=== PATIENT | male | born 1945 | race Caucasian/White ===

== ENCOUNTER 2019-05-27 08:13 | Outpatient (REF) | payer MEDICARE, OTHER, SELFPAY ==
[2019-05-28 08:45] LABS: HCT 47.1 % (40.0-50.0); HGB 16.1 g/dL (13.5-17.5); Mean Corp. HGB Concentration 34.2 g/dL (32.0-36.0); Mean Corpuscular Hemoglobin 31.4 pg (27.0-33.0); Mean Corpuscular Volume 91.8 fL (80-95); Mean Platelet Volume 11.7 fL (8.0-11.0); Platelet Count 178 x1000/uL (130-400); RBC 5.13 m/cumm (4.50-6.00); RBC Distribution Width 13.1 % (11.8-14.1); White Blood Cell Count 6.53 k/cumm (4.4-10.8)
[2019-05-28 09:19] LABS: Anion Gap 8.7 mmol/L (3-11); BUN 19 mg/dL (7-18); CO2 25.3 mmol/L (21.0-32.0); CREATININE 1.06 mg/dL (0.70-1.30); Calcium 8.6 mg/dL (8.5-10.1); Chloride 105 mmol/L (98-107); Glucose 115 mg/dL (70-100); Sodium 139 mmol/L (136-145)
== END 2019-05-27 08:33 ==
LOC: NCHCN 08:13
PROVIDERS: PCP Family Medicine; Visit Provider Nurse Practitioner Family
DX: I10 Essential (primary) hypertension (principal)
CPT/HCPCS: 80048; 85027

== ENCOUNTER 2024-02-12 11:14 | Outpatient (REF) | payer MEDICARE, OTHER, SELFPAY ==
[2024-02-12 15:04] LABS: ALT 28 U/L (16-63); AST 23 U/L (15-37); Albumin 3.9 g/dL (3.4-5.0); Alkaline Phosphatase 84 U/L (46-116); Anion Gap 6.8 mmol/L (3-11); BUN 19 mg/dL (7-18); Bilirubin, Total 0.4 mg/dL (0.2-1.0); CO2 28.2 mmol/L (21.0-32.0); CREATININE 1.1 mg/dL (0.70-1.30); Calcium 9.3 mg/dL (8.5-10.1); Calculated LDL 119 mg/dL (<100); Chloride 105 mmol/L (98-107); Cholesterol 208 mg/dL (<200); Estimated GFR 67.86 (mL/min/1.73m2); Glucose 123 mg/dL (74-106); HDL Cholesterol 42 mg/dL (40-60); Potassium 4.3 mmol/L (3.5-5.1); Sodium 140 mmol/L (136-145); Total Protein 7.4 g/dL (6.4-8.2); Triglyceride 238 mg/dL (<150)
== END 2024-02-12 11:15 | disposition home or self-care (01) ==
LOC: NCHCN 11:14
PROVIDERS: PCP Family Medicine; Visit Provider Family Medicine
DX: I10 Essential (primary) hypertension (principal); Z13.220 Encounter for screening for lipoid disorders
CPT/HCPCS: 80053; 80061

== ENCOUNTER 2024-09-03 21:41 | Outpatient (REF) | payer MEDICARE, SELFPAY ==
[2024-09-03 21:56] LABS: ALT 32 U/L (16-63); AST 30 U/L (15-37); Albumin 4.1 g/dL (3.4-5.0); Alkaline Phosphatase 99 U/L (46-116); Anion Gap 8.5 mmol/L (3-11); BUN 20 mg/dL (7-18); Bilirubin, Total 0.66 mg/dL (0.2-1.0); CO2 26.5 mmol/L (21.0-32.0); CREATININE 1.3 mg/dL (0.70-1.30); Calcium 9.2 mg/dL (8.5-10.1); Calculated LDL 87 mg/dL (<100); Chloride 106 mmol/L (98-107); Cholesterol 157 mg/dL (<200); Estimated GFR 55.53 (mL/min/1.73m2); Glucose 95 mg/dL (74-106); HDL Cholesterol 51 mg/dL (40-60); Potassium 4.5 mmol/L (3.5-5.1); Sodium 141 mmol/L (136-145); Total Protein 7.9 g/dL (6.4-8.2); Triglyceride 97 mg/dL (<150)
--- OUTSIDE RECORDS SUMMARY | 2024-09-03 21:56 | XMS_ITS ---
Author Organization Unknown Address [address] [place] [phone] Phone Care Team Providers Care Banking Analyst Name Role Phone FRANSISCA GUTIERRES Registered Nurse Unavailable USHA Gomez Attending Unavailable SALMA [facility] Unavailable UNLISTED PROVIDER - REQUESTED Xhandoff Un available Results XR FEMUR 2V RT* - Completed: 10/26/2023 11:33 LOINC: [facility] [place], [place] [address] PACS PULVERIZER OPERATOR REPORT Patient Name: ROYCE VALDEZ MRN: Sex: : Age: [id number] M 1945 77 Account: Accession: Admit: StayType: [id number] 10/26/2023 E/R Ordered: Order ID: Submitted: Ordering Provider: 10/26/2023 10:48 [id number] KHALIDA CONNOLLY Completed: Technologist: Resulted: 10/26/2023 11:33 MXR 10/26/2023 11:38 Study Description: XR FEMUR 2V RT Study Reason: Trauma TECHNIQUE: 2D digital imaging was performed. COMPARISON: No exams were available for comparison FINDINGS: NUMBER OF VIEWS: 4 There is a right hip prosthesis which appears intact. No fracture nor loosening evident. Remainder of the femur is also unremarkable. There are mild degenerative changes in the knee. IMPRESSION: No fracture of the right femur. Intact right hip prosthesis. Report Digitally Signed by Bridger Donald on 10/26/2023 11:38 AM EST XR PELVIS 1V OR 2V - Complet ed: 10/26/2023 11:46 LOINC: [facility] [place], [place] [address] PACS PULVERIZER OPERATOR REPORT Patient Name: ROYCE VALDEZ MRN: Sex: : Age: [id number] M 1945 77 Account: Accession: Admit: StayType: [id number] 10/26/2023 E/R Ordered: Order ID: Submitted: Ordering Provider: 10/26/2023 11:36 [id number] MXHANK OWENS Completed: Technologist: Resulted: 10/26/2023 11:46 MXR 10/26/2023 20:17 Study Description: XR PELVIS 1V OR 2V Study Reason: Pain 2D digital imaging was performed. COMPARISON: Prior images dating back to 10/29/2019. 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 The more recently placed right hip arthroplasty was performed 12/23/2019. Both partially visualized prostheses appear satisfactory. Both femoral secured by screws. No loosening evident in the [id number] of this single view. Bone density in the pelvis is normal and SI joints appear unremarkable. IMPRESSION: Satisfactory appearance Report Digitally Signed by Bridger Donald on 10/26/2023 08:17 PM EST Social History Type Status Start Date End Date Code Code Syst em Smoking History Never smoker (Never Smoked) 156411344 SNOMED CT Sex Male Vital Signs Vital Sign Value Unit [place] Value [place] Unit Date/Time Recent/Initial? Code Code System Body Mass Index 32.11 kg/m2 10/26/2023 09:45 Initial 44257 -5 LOINC Systolic Blood Pressure 187 mm[Hg] 10/26/2023 09:45 Initial 8480- 6 LOINC Diastolic Blood Pressure 86 mm[Hg] 10/26/2023 09:45 Initial 8462- 4 LOINC Body Surface Area 2.10 m2 10/26/2023 09:45 Initial 3140- 1 LOINC Height 170.180 0 cm 67.00 in 10/26/2023 09:45 Initial 8302- 2 LOINC O2 Saturation 97 % 2023 09:45 Initial 80704 -5 LOINC Pulse 96.0 /min 10/26/2023 09:45 Initial 8867- 4 LOINC Respiration 18 /min 10/26/19 09:45 Initial 9279- 1 LOINC Temperature 35.6 Mitzy 96.1 F 10/26/19 09:45 Initial 8310- 5 LOINC Weight 92.99 kg 205.00 lbs 10/26/2023 09:45 Initial 11211 -7 LOINC Medications Medication Start Date End Date Route Frequency Dose Code Code System Medication Instructions Home Meds predniSONE 20MG Oral Tablet 10/26/2023 Unknown ORAL DAILY 2 TABLET 902191 RxNorm TAKE 2 TABLET ORAL DAILY Robaxin 500MG Oral Tablet 10/26/2023 Unknown ORAL THREE TIMES A DAY 1 TABLET RxNorm TAKE 1 TABLET ORAL THREE TIMES A DAY Hospital Discharge Instructions Should you have any questions prior to discharge, please contact a member of your healthcare team. If you have left the hospital and have any questions, please contact your primary care physician. Reason For Referral No Data Found Allergies and Adverse Reactions Allergy Substance Reaction Severity Start Date Concern Status Code Code System [place] RASH (SNOMED-CT: null) Active No Known Drug Allergies Active 513637816 SNOMED-CT Plan of Treatment MRI L SPINE W/O CONTRAST 11/02/2023 Encounters Encounter Diagnosis Start Date Code Code Sys tem 10/26/2023 [id number] SNOMED-CT Personal Care Team Section Performer Name Performer Role Active Date Inactive Da te
--- OUTSIDE RECORDS SUMMARY | 2024-09-03 21:56 | XMS_ITS ---
Author Organization Unknown Address [address] [place] [phone] Phone Care Team Providers Care Wheel Cleaner Name Role Phone JA Christiansen Attending Unavailable Results MR LS SPINE WO CONTRAST - Co mpleted: 11/02/2023 08:34 LOINC: [facility] [place], [place] [address] PACS AGENCY MANAGER REPORT Patient Name: ROYCE VALDEZ MRN: Sex: : Age: [id number] M 1945 77 Account: Accession: Admit: StayType: [id number] 11/02/2023 O/P Ordered: Order ID: Submitted: Ordering Provider: 11/02/2023 07:40 [id number] GILMAR QUIROZ Completed: Technologist: Resulted: 11/02/2023 08:34 HTP 11/02/2023 09:17 Study Description: MR LS SPINE WO CONTRAST Study Reason: Radicalopathy TECHNIQUE: Multiplanar multisequence MRI of the Lumbar spine was performed. COMPARISON: No exams were available for comparison FINDINGS: The exam is mildly limited by motion. Bones: The last intervertebral disc space is designated the L5/S1 level for the numbering purpose of this examination. The vertebral body heights are well maintained. Alignment is satisfactory. The signal characteristics are unremarkable. Cord: The conus tip ends at the T12 level. It is of normal size and signal intensity. T12-L1: No disc herniations or bulges are present. No central spinal canal stenosis. Degenerative changes on the right causing mild neural foraminal narrowing. L1-2: Mild concentric disc bulging. No central canal stenosis. Mild bilateral neural foraminal narrowing. L2-3: Broad-based disc bulging. Small endplate osteophytes. Facet degenerative changes. No central canal stenosis. Mild right and moderate left neural foraminal narrowing. L3-4: Broad-based disc bulging and endplate osteophytes. Right foraminal disc protrusion. Mild facet degenerative changes. Severe right neural foraminal narrowing. Moderate left neural foraminal narrowing. L4-5: Broad-based disc bulging. Facet degenerative changes. Mild bilateral neural foraminal narrowing. No central canal stenosis. Mild degenerative spondylolisthesis. L5-S1: Minimal disc bulging. No central spinal canal or neural foraminal stenosis. Soft tissues: The visualized SI joints and sacrum are well maintained. The paraspinal soft tissues are unremarkable. IMPRESSION: Right foraminal disc herniation at L3-4 causing severe right neuroforaminal narrowing and nerve root impingement. Degenerative disc changes and facet degenerative changes causing neuroforaminal narrowing at multiple levels. No significant central canal stenosis at any level. Report Digitally Signed by Eileen Langston on 11/02/2023 09:17 AM EST Social History Type Status Start Date End Date Code Code Syst em Smoking History Never smoker (Never Smoked) 591722302 OMED CT Sex Male Medications Medication Start Date End Date Route Frequency Dose Code Code System Medication Instructions Home Meds predniSONE 20MG Oral Tablet 10/26/2023 Unknown ORAL DAILY 2 TABLET 275649 RxNorm TAKE 2 TABLET ORAL DAILY Robaxin [...] null) Active No Known Drug Allergies Active [id number] SNOMED-CT Plan of Treatment MRI L SPINE W/O CONTRAST 11/02/2023 Encounters Encounter Diagnosis Start Date Code Code Sys tem Prolapsed lumbar intervertebral disc 11/02/20232026 11396 SNOMED-CT Personal Care Team Section Performer Name Performer Role Active Date Inactive Da te
== END 2024-09-03 21:42 | disposition home or self-care (01) ==
LOC: NCHCN 21:41
PROVIDERS: PCP Family Medicine; Visit Provider Family Medicine
DX: Z51.81 Encounter for therapeutic drug level monitoring (principal)
CPT/HCPCS: 80053; 80061

== ENCOUNTER 2025-09-16 12:21 | Outpatient (REF) | payer MEDICARE, OTHER, SELFPAY ==
[2025-09-16 16:43] LABS: ALT 27 U/L (10-49); AST 36 U/L (<34); Albumin 4.5 g/dL (3.2-5.0); Alkaline Phosphatase 92 U/L (46-116); Anion Gap 7 mmol/L (3-11); BUN 23 mg/dL (9-23); Bilirubin, Total 0.40 mg/dL (0.2-1.2); CO2 26.0 mmol/L (20.0-31.0); Calcium 9.4 mg/dL (8.3-10.6); Chloride 109 mmol/L (98-107); Cholesterol 163 mg/dL (<200); Glucose 102 mg/dL (74-106); HDL Cholesterol 46 mg/dL (>40); Potassium 4.6 mmol/L (3.5-5.1); Sodium 142 mmol/L (136-145); Total Protein 7.3 g/dL (5.7-8.2)
== END 2025-09-16 12:22 | disposition home or self-care (01) ==
LOC: NCHCN 12:21
PROVIDERS: PCP Family Medicine; Visit Provider Family Medicine
DX: E78.5 Hyperlipidemia, unspecified (principal)
CPT/HCPCS: 80053; 80061